=== PATIENT | male | born 1935 | race Caucasian/White ===

== ENCOUNTER 2023-12-09 20:04 | Emergency (ER) | payer MEDICARE, SELFPAY ==
[2023-12-09 20:16] VITALS: BP 204/89; PULSE 84; RESP 16; TEMP 36.4; O2SAT 98; BMI 19.5
[2023-12-09 21:01] LABS: MANUAL DIFF FLAG NO
[2023-12-09 21:03] LABS: Basophils Absolute Auto 0.1 X10*3/uL (0.0-0.2); Basophils Percent Auto 0.5 % (0-2); Eosinophils Absolute Auto 0.8 X10*3/uL (0.0-0.4); Eosinophils Percent Auto 6.8 % (0-4); Hemoglobin 14.4 g/dl (14.0-18.0); Imm Gran Abs Auto 0.07 X10*3/uL (0.00-0.03); Imm Gran Pct Auto 0.6 % (0.0-0.4); Lymphocytes Absolute Auto 2.7 X10*3/uL (1.2-4.9); Lymphocytes Percent Auto 23.2 % (20-40); Mean Corpuscular HGB Conc 35.1 g/dl (31.0-36.0); Mean Corpuscular Hemoglobin 29.3 pg (27.0-33.0); Mean Corpuscular Volume 83.5 fL (80.0-98.0); Mean Platelet Volume 8.7 fL (9.4-12.4); Monocytes Absolute Auto 0.7 X10*3/uL (0.1-1.2); Monocytes Percent Auto 5.8 % (2-11); Neutrophils Absolute Auto 7.2 x10*3/uL (2.0-8.3); Neutrophils Percent Auto 63.1 % (45-73); Platelet Count 269 X10*3/uL (160-400); Red Blood Count 4.91 X10*6/uL (4.60-5.80); Red Cell Distribution Width 13.4 % (11.0-16.0); White Blood Count 11.4 X10*3/uL (4.8-10.8)
[2023-12-09 21:04] LABS: Appearance Urine Turbid; Color Urine Yellow; Glucose Urine UA Negative (Negative); Leukocyte Esterase Urine Large (3+) (Negative); Nitrite Urine Negative (Negative); Specific Gravity - Urine 1.015 (1.005-1.025); UMIC TRIGGER UACC YES; Urine Blood Large (3+) (Negative); Urine Ketones Negative (Negative); Urine Protein 300 (3+) mg/dL (Neg-Trace)
[2023-12-09 21:06] LABS: Bacteria Urine None Seen (None Seen); Hyaline Casts Urine 0-2 /LPF (0-2); RBC Urine >20 /HPF (0-2); Squamous Epithelial Cell Urine 0-2 /HPF (0-2); UACC Culture Trigger YES; WBC Urine >50 /HPF (0-5)
[2023-12-09 21:18] LABS: Anion Gap 13 (12-20); Blood Urea Nitrogen 10 mg/dL (9-16); Calcium 9.5 mg/dL (8.4-10.2); Carbon Dioxide 26 mmol/L (22-29); Chloride 100 mmol/L (96-108); Creatinine Clr Calc Pharmacy 63.6; Estimated Glomerular Filt Rate > 60; Glucose Random 111 mg/dL (60-115); Potassium 4.3 mmol/L (3.3-5.1); Sodium 135 mmol/L (135-145)
[2023-12-09 23:33] VITALS: BP 188/96; PULSE 69; RESP 17; TEMP 36.3; O2SAT 96
--- NOTE | 2023-12-09 23:55 | ED_ITS ---
HPI - Male Genitourinary General Chief complaint: Urogenital-Male Stated complaint: recurrent UTI Time Seen by Provider: 12/09/23 23:55 History of Present Illness ED Provider: Myah PARKS Narrative: The patient is an 88-year-old male who normally lives in [place] and receives most of his medical care in [place]. He and his also have a house in this area because his was a professor at [employer]. The patient has been self catheterizing for about a year. In the last 6 months he has had urinary tract infections. Today he developed urinary discomfort similar to symptoms he has had with his previous urinary tract infections. He says that he finished a course of ciprofloxacin for his most recent urinary tract infection about a week ago. He was doing well until today when he developed urinary discomfort and pain in his penis. No fever, sweats, chills. No nausea or vomiting. No flank pain. He says that his previous urine cultures have grown E coli. He believes that there was no particular resistance to the E coli infections he has had recently. Related Data Previous Rx's ?Medication ?Instructions ?Recorded cefpodoxime 100 mg tablet 100 mg PO BID #14 tabs 12/10/23 Allergies Allergy/AdvReac Type Severity Reaction Status Date / Time cephalexin [From KEFLEX] Allergy Unknown ANAPHYLAXIS Verified 12/10/23 00:00 Penicillins [PENICILLINS] Allergy Unknown ANAPHYLAXIS Verified 12/10/23 00:00 gluten Allergy Gastrointestinal Verified 12/10/23 00:00 Upset DAIRY PRODUCTS Allergy Unknown MIGRAINES Uncoded 12/10/23 00:00 Review of Systems 2 Review of Systems: Yes all other systems are reviewed and are negative PMFSH Social History Social History Smoked in Last 30 Days: No Use of substances other than those prescribed or required for medical reasons: No Advance Directives: No Advance Directives Information Provided: No Physical Exam 2 Vital Signs: Vital Signs: Last Vital Signs Temp 98.6 F 12/10/23 00:56 Pulse 75 12/10/23 00:56 Resp 18 12/10/23 00:56 BP 167/89 H 12/10/23 00:56 Pulse Ox 96 12/10/23 00:56 O2 Del Method Room Air 12/10/23 00:56 BMI result Body Mass Index 19.5 Const: Other: The patient is awake and alert with a normal mental status. He does not appear acutely ill. He is pleasant and cooperative. HEENT: Other: Face is symmetrical. Mucous membranes moist. Eyes: General: appearance normal, both eyes and all related structures Neck: Neck: Yes no JVD Resp: Effort & Inspection: normal respiratory effort Auscultation: clear to auscultation bilaterally Cardio: Rate: regular rate Rhythm: regular rhythm Heart sounds: S1 normal heart sound present and S2 normal heart sound present GI: Other: Abdomen is soft and nontender. No suprapubic tenderness or fullness. : General: Yes no CVA tenderness Back/Spine/Pelvis: Back: no CVA tenderness Skin: General skin exam: no rashes or lesions noted Neuro: Other: The patient was awake and alert with a normal mental status. Moving all extremities symmetrically. Grossly neurologically intact. Extrem: General: Yes no pedal edema Medications Administered Discontinued Medications Generic Name Dose Route Start Last Admin Trade Name Freq PRN Reason Stop Dose Admin Cefuroxime Axetil 250 mg 12/10/23 00:15 12/10/23 00:50 Cefuroxime Axetil 250 Mg Tablet PO 12/10/23 00:16 250 mg ONCE ONE Administration Medical Decision Making Medical Decision Making [facility] Narrative: The patient is an 88-year-old male who performed self catheterization. He presents with symptoms of UTI in his urinalysis is consistent with a UTI. He does not appear toxic. No signs of systemic illness or pyelonephritis. as far as he can tell me his previous urinary infections were not associated with any resistant organisms. He will be prescribed cefpodoxime and should follow up with His urologist in [place] when he gets home. Lab Data 12/09/23 20:52 12/09/23 20:52 Labs: Lab Results 12/09/23 Range/Units 20:52 WBC 11.4 H (4.8-10.8) X10*3/uL RBC 4.91 (4.60-5.80) X10*6/uL Hgb 14.4 (14.0-18.0) g/dl Hct 41.0 L (42.0-52.0) % MCV 83.5 (80.0-98.0) fL MCH 29.3 (27.0-33.0) pg MCHC 35.1 (31.0-36.0) g/dl RDW 13.4 (11.0-16.0) % Plt Count 269 (160-400) X10*3/uL MPV 8.7 L (9.4-12.4) fL Immature Gran % (Auto) 0.6 H (0.0-0.4) % Neut % (Auto) 63.1 (45-73) % Lymph % (Auto) 23.2 (20-40) % [place] % (Auto) 5.8 (2-11) % Eos % (Auto) 6.8 H (0-4) % Baso % (Auto) 0.5 (0-2) % Lymph # (Auto) 2.7 (1.2-4.9) X10*3/uL [place] # (Auto) 0.7 (0.1-1.2) X10*3/uL Eos # (Auto) 0.8 H (0.0-0.4) X10*3/uL Baso # (Auto) 0.1 (0.0-0.2) X10*3/uL Abs Immat Gran (auto) 0.07 H (0.00-0.03) X10*3/uL Absolute Neuts (auto) 7.2 (2.0-8.3) x10*3/uL Absolute Nucleated RBC 0.000 (0.0-0.012) X10*3/uL Nucleated RBC % (auto) 0.0 (0.0-0.2) /100WBC Sodium 135 (135-145) mmol/L Potassium 4.3 (3.3-5.1) mmol/L Chloride 100 (96-108) mmol/L Carbon Dioxide 26 (22-29) mmol/L Anion Gap 13 (12-20) BUN 10 (9-16) mg/dL Creatinine 0.72 (0.5-1.4) mg/dL Estim Creat Clear Calc 63.6 Estimated GFR > 60 Random Glucose 111 (60-115) mg/dL Calcium 9.5 (8.4-10.2) mg/dL Urine Color Yellow Urine Appearance Turbid Urine pH 7.0 (5.0-9.0) Ur Specific [place] 1.015 (1.005-1.025) Urine Protein 300 (3+) H (Neg-Trace) mg/dL Urine Glucose (UA) Negative (Negative) mg/dL Urine Ketones Negative (Negative) mg/dL Urine Blood Large (3+) H (Negative) Urine Nitrite Negative (Negative) Ur Leukocyte Esterase Large (3+) H (Negative) Urine RBC >20 H (0-2) /HPF Urine WBC >50 H (0-5) /HPF Ur Squamous Epith Cells 0-2 (0-2) /HPF Urine Bacteria None Seen (None Seen) Hyaline Casts 0-2 (0-2) /LPF Discharge Plan Discharge Clinical Impression: Urinary tract infection Patient Disposition: Home, Self-Care Additional Instructions: Please pickle processor the prescription for the antibiotic, cefpodoxime, in the morning. Please take a dose when you pickle processor the prescription and then take a 2nd dose in the evening. Take this antibiotic 2 times a day for several days, approximately every 12 hours. Drink lot of fluids. Please plan on following up with your urologist when you return to [place] to discuss these frequent urinary tract infections. If you feel significantly worse, especially if you develop fever or vomiting or flank pain, return to the emergency room for further care. Prescriptions: New cefpodoxime 100 mg tablet 100 mg PO BID Qty: 14 0RF Rx Instructions: must administer with a meal/food Interventions: ED Discharge Assessment Last Done: 12/10/23 00:56 Discharge Date/Time: 12/10/23 00:57 Print Language: Welsh
--- NOTE | 2023-12-09 23:58 | PC.NURSE ---
pt from home,a&ox4, respirations even and unlabored. pt reporting onset of blood in urine, painful urination and frequent urination. pt reports he has hx of uti and reports he has been treated for 4 in the past 3 months. pt denies abd pain at this time.
[2023-12-10 00:50] VITALS: BP 167/89; PULSE 75; RESP 18; TEMP 37; O2SAT 96
[2023-12-10] MEDS: cefuroxime axetiL 250 MG TABLET PO (00:50)
[2023-12-10 00:56] VITALS: BP 167/89; PULSE 75; RESP 18; TEMP 37; O2SAT 96
== END 2023-12-10 00:57 | disposition home or self-care (01) ==
PROVIDERS: Emergency Provider Emergency Medicine
DX: N39.0 Urinary tract infection, site not specified (principal); R30.9 Painful micturition, unspecified
CPT/HCPCS: 36415; 80048; 81001; 81003; 85025; 87086; 99283; 99285